=== PATIENT | male | born 1965 | race Caucasian/White ===

== ENCOUNTER 2022-03-09 05:44 | Emergency (ER) | payer BC, SELFPAY ==
--- NOTE | ~2022-03-09 | XR_ITS ---
EXAMINATION: XR LUMBOSACRAL SPINE CLINICAL INFORMATION: Back pain. COMPARISON: 09/18/2015 lumbar spine radiographs. TECHNIQUE: Three views of the lumbosacral spine. FINDINGS: The vertebral bodies and posterior elements are normal. The disc spaces are preserved and the vertebral alignment is normal. Mild marginal osteophyte formation is seen at L3-L4 and L4-L5. The paraspinal soft tissues are normal. XR/XR lumbar spine 2-3V IMPRESSION: No significant lumbar spine abnormality.
[2022-03-09 05:59] VITALS: BP 140/85; PULSE 91; RESP 18; TEMP 36.9; O2SAT 98; BMI 27.4
--- NOTE | 2022-03-09 07:30 | ED.BACK ---
HPI - Back Pain/Injury General Chief Complaint: Back Pain/Injury Stated Complaint: back pain Time Seen by Provider: 03/09/22 07:29 Source: patient Mode of arrival: ambulatory Limitations: no limitations History of Present Illness MD elicited complaint: back pain Onset (ago): day(s) (4) Timing: constant Severity: moderate Similar Symptoms Previously: No Quality: sharp and throbbing Location: lumbar spine Radiation: none Exacerbating factors: movement Relieving factors: immobilization Context: unknown (woke up like this one day) Associated symptoms: difficulty walking Treatments prior to arrival: NSAIDS (meloxicam) and other medications (flexeril) Work related injury: No Related Data Previous Rx's Medication Instructions Recorded acetaminophen 500 mg tablet 500 mg PO QID PRN pain #30 tabs 03/09/22 lidocaine 5 % topical patch 1 patch topical DAILY #30 ea 03/09/22 prednisone 20 mg tablet 40 mg PO DAILY 4 days #8 tabs 03/09/22 Allergies Allergy/AdvReac Type Severity Reaction Status Date / Time No Known Allergies Allergy Unverified 06/11/20 15:31 [No Known Allergies*] Review of Systems Review of Systems: Constitutional : No Weight loss, No Fever, No Chills, ENT/Mouth : No Hearing loss, No Ear Pain, No Nasal Congestion, No Sinus Pain, No Hoarseness, No sore throat, No Rhinorrhea, No Swallowing Difficulty Cardiovascular : No Chest Pain, No SOB Respiratory : No Cough, No Dyspnea Gastrointestinal : No Nausea, No Vomiting, No Diarrhea, No abdominal Pain, No Hematochezia, No Melena Genitourinary : No Dysuria, No Urinary Frequency, No Hematuria, No Urinary Incontinence, Musculoskeletal : positive back pain Skin : No Skin Lesions, No rash Neuro : No Weakness, No Numbness, No Paresthesias, no loss of bowel or bladder incontinence, no saddle anesthesia [facility] Past Medical History Attestation statement: The following information was validated with the patient. Medical History (Updated 03/09/22 @ 07:47 by Farzaneh Rider DO) No pertinent past medical history Social History Social History (Updated 03/09/22 @ 07:44 by Farzaneh Rider DO) Alcohol intake: never Patient Tobacco Use Status: Never used Tobacco Use of substances other than those prescribed or required for medical reasons: No Advance Directives: No Advance Directives Information Provided: No Physical Exam Vital Signs: Vital Signs: Last Vital Signs Temp 96.5 F L 03/09/22 08:57 Pulse 67 03/09/22 08:57 Resp 16 03/09/22 08:57 BP 109/72 03/09/22 08:57 Pulse Ox 95 03/09/22 08:57 O2 Del Method 03/09/22 08:57 BMI result Body Mass Index 27.4 Appearance: Alert. Oriented X3. No acute distress. Eyes: Pupils equal, round and reactive to light. ENT: Pharynx normal. Neck: Normal inspection. Neck supple. CVS: Normal heart rate and rhythm. Pulses normal. Respiratory: No respiratory distress. Breath sounds normal. Abdomen: Soft and nontender. Back: ttp along R SI joint no mass felt Skin: Skin warm and dry. Normal skin color. Normal skin turgor. Extremities: No lower extremity edema. No calf ttp Neuro: Oriented X 3. No motor deficit. No sensory deficit. SILT inner thigh, L5 5/5 bilaterally 2+ DTR in patella region MDM - Back Pain/Injury MDM Narrative Medical decision making narrative: 56 yo male with R sided lumbar back pain here with c/o atrauamtic back pain no b/b incontinence, no saddle anesthesia no blood thinners no IVDA - worried because pain still present on day 4 despite taking medications meloxicam and flexeril - at this time will obtain xray start on steroids and lidocaine patches will also explain to patient he will likely have some degree of pain over the next two weeks. He has appointment with PCP in 2 days. Discharge Plan Discharge Clinical Impression: Acute lumbar back pain Qualifiers: Back pain laterality: right Sciatica presence: without sciatica Qualified Code(s): M54.50 - Low back pain, unspecified Patient Disposition: Home, Self-Care Instructions: Acute Low Back Pain (ED) Additional Instructions: return to ED for any worsening symptoms or concerns take all medications with food at this time also take tylenol as well see your doctor tomorrow morning FINDINGS: The vertebral bodies and posterior elements are normal. The disc spaces are preserved and the vertebral alignment is normal. Mild marginal osteophyte formation is seen at L3-L4 and L4-L5. The paraspinal soft tissues are normal. XR/XR lumbar spine 2-3V IMPRESSION: No significant lumbar spine abnormality Prescriptions: New prednisone 20 mg tablet 40 mg PO DAILY 4 Days Qty: 8 0RF acetaminophen 500 mg tablet 500 mg PO QID PRN (Reason: pain) Qty: 30 0RF lidocaine 5 % adhesive patch,medicated 1 patch topical DAILY Qty: 30 0RF Rx Instructions: leave on most painful area for up to 12 hrs Stand Alone Forms: Work/School Release
[2022-03-09] MEDS: predniSONE 20 MG TABLET 40 MG PO (08:49)
[2022-03-09] MEDS: Lidocaine 4 % Patch ADH..PATCH 1 PATCH TRANSDERMA (08:50)
[2022-03-09 08:57] VITALS: BP 109/72; PULSE 67; RESP 16; TEMP 35.8; O2SAT 95
== END 2022-03-09 09:58 | disposition home or self-care (01) ==
PROVIDERS: Emergency Provider Emergency Medicine; PCP Nurse Practitioner Family
DX: M54.50 Low back pain, unspecified (principal)
CPT/HCPCS: 72100; 99283; 99284